=== PATIENT | male | born 1960 | race Caucasian/White ===

== ENCOUNTER 2018-07-31 07:53 | Outpatient (CLI) | payer OTHER ==
[2018-07-31 09:42] LABS: Mean Corpuscular HGB CONC 34.8 g/dL (32.0-36.0); Mean Corpuscular Hemoglobin 30.6 pg (27.0-31.0); Mean Platelet Volume 6.3 fL (7.4-10.4); Platelet Count 292 thou/uL (130-400); RBC Distribution Width 12.3 % (11.5-14.5); White Blood Cell (WBC) Count 6.9 thou/uL (4.8-10.8)
[2018-07-31 09:43] LABS: PTT 29.1 SEC (22.9-36.1); Prothrombin Time 13.4 SEC (12.0-14.7)
[2018-07-31 09:49] LABS: Anion Gap 10 mmol/L (10-20); BUN (Urea Nitrogen) 14 mg/dL (8.4-25.7); Calc. Creatinine Clearance 0 mL/min (70-130); Calcium 9.4 mg/dL (7.8-10.44); Carbon Dioxide 26 mmol/L (22-29); Chloride 107 mmol/L (98-107); Estimated GFR-MDRD 77; Glucose 111 mg/dL (70-105); Potassium 4.4 mmol/L (3.5-5.1); Sodium 139 mmol/L (136-145)
[2018-07-31 11:35] LABS: Bilirubin Negative (Negative); Blood, Urine Negative (Negative); Clarity CLEAR (Clear); Glucose, Urine (Dipstick) Negative (Negative); Leukocyte Negative (Negative); Nitrite Negative (Negative); Protein, Urine (Dipstick) Negative (Neg-Trace)
[2018-07-31 11:38] LABS: Bacteria/HPF None Seen HPF (None Seen); Hyaline Casts/LPF 0-3 HYALINE CAST LPF (0-3 Hyaline); Squamous Epithelial None Seen HPF (0-3); WBC/HPF 0-3 HPF (0-3)
--- NOTE | 2018-07-31 12:19 | EKG ---
Test Reason : Blood Pressure : / mmHG Vent. Rate : 071 BPM Atrial Rate : 071 BPM P-R Int : 174 ms QRS Dur : 108 ms QT Int : 384 ms P-R-T Axes : 013 -67 011 degrees QTc Int : 417 ms Normal sinus rhythm Left anterior fascicular block Anterior infarct , age undetermined cannot be excluded Abnormal ECG Confirmed by FER POZO ([id number]) on 07/31/2018 12:19:38 PM Referred By: YESENIA SAMUEL Confirmed By:FER POZO
== END 2018-07-31 07:54 | disposition home or self-care (01) ==
LOC: LABBT 07:53
PROVIDERS: ATTEND Urology
DX: Z01.818 Encounter for other preprocedural examination (principal); N43.0 Encysted hydrocele
CPT/HCPCS: 80048; 81001; 85027; 85610; 85730; 87086; 93005; 93010

== ENCOUNTER 2018-08-11 10:34 | Day surgery (SDC) | payer OTHER ==
[2018-07-31 08:27] VITALS: BMI 32.1
[~2018-08-11 10:34] MED LIST: CEFAZOLIN/Water 2 GM/20 ML SYRINGE ONE
[2018-08-11] MEDS ORDERED: Bacitracin Zinc Ointment 30 gm TUBE ONE (11:13)
[2018-08-11] MEDS ORDERED: Bupivacaine 0.25% HCL 30 ML VIAL ONE (11:13)
[2018-08-11] MEDS ORDERED: Fentanyl 100 MCG/2 ML VIAL ONE (12:15)
--- NOTE | 2018-08-11 16:54 | OP ---
DATE OF SURGERY: 08/11/2018 SERVICE: Urology. SURGEON: Migue Man M.D. PREOPERATIVE DIAGNOSIS: Right hydrocele. POSTOPERATIVE DIAGNOSIS: Right noncommunicating hydrocele. PROCEDURE PERFORMED: Right hydrocelectomy in the Jaboulay fashion. INDICATIONS FOR PROCEDURE: Mr. Martin is a 58-year-old white male with a large right hydrocele. It is becoming uncomfortable and getting in the way of his activities. He elected to have the hydrocele r emoved with all risks and benefits discussed and he has agreed to proceed forward. DESCRIPTION OF PROCEDURE: After identification of armband and verification of consent, the patient w as brought back to the operating room and he underwent general anesthesia with an LMA. He was left i n the supine position and prepped and draped in usual sterile fashion. After appropriate timeout, a horizontal incision was made along one of the scrotal creases on the rig ht hemiscrotum in a horizontal fashion. Dissection was carried down through the dartos and external and internal spermatic fascia using Bovie electrocautery until the tunica vaginalis was identified. The hydrocele was dissected free from the underlying tissues with blunt dissection and some Bovie tanya ctrocautery. Once enough had been dissected free, the hydrocele was delivered out through the scrota l incision to the outside. The surrounding tissues were swept back using a Ray-Himanshu until the spermat ic cord was visualized. An incision was made on the anterior surface of the hydrocele sac with a 15 blade, approximately 800 and 900 mL of straw-colored fluid were evacuated. The hydrocele sac was the n opened completely up to the apex near the spermatic cord and close to the epididymis on the inferio r pole. The testicle was visualized and appeared to be normal. The epididymis was somewhat splayed out, but otherwise intact and normal. The hydrocele sac was then excised on both sides and sent off for routine pathologic evaluation, taking care not to injure the epididymis or the vas deferens. Any loose vessels or bleeding areas were cauterized and sealed and then the remaining flaps of the tunic a vaginalis were everted and sewed on the posterior aspect of the testicle loosely to ensure that it was adequately everted, but not tight enough to form and closed space for hydrocele recurrence in the posterior aspect of the testicle. The testicle was thoroughly irrigated and all structures identifi ed to be found intact without any compromise in blood flow. A direct cord block was performed with 0 .25% Marcaine plain directly into the spermatic cord. The inside of the scrotal wall was searched fo r any bleeding areas and any minor bleeding was cauterized, there were no major bleeds identified. A small incision was made on the inferior aspect of the right hemiscrotum using the cutting current on the Bovie and a hemostat used to pass a quarter inch Carney drain tube for the drain stitch was tiago lied with a 3-0 nylon and a small thin anchoring stitch with a 4-0 chromic on the inside to prevent a ccidental removal with a very small piece of the internal spermatic fascia to anchor it. The testis was redelivered back into the scrotum and after been thoroughly irrigated with fluid evacuated, the d artos and spermatic fascias were closed using a 2-0 Vicryl in a running fashion. The skin closed wit h a 4-0 Monocryl with Marcaine used in the incision line as well. Dermabond was applied and once dri ed, scrotal fluffs and a jockstrap applied. The patient was then awakened and taken to PACU for leticia very in stable condition. COMPLICATIONS: None. ESTIMATED BLOOD LOSS: 10 mL RETAINED TUBES AND DRAINS: A quarter inch Carney drain. SPECIMENS: Hydrocele sac. DISPOSITION: The patient will be discharged home and follow up with me in approximately 1 week for a drain removal.
== END 2018-08-11 17:30 | disposition home or self-care (01) ==
LOC: SDC 10:34
PROVIDERS: ATTEND Urology
PROC: 0VB60ZZ Excision of Right Tunica Vaginalis, Open Approach (ICD-10-PCS; principal; 2018-08-11)
DX: N43.0 Encysted hydrocele (principal); I10 Essential (primary) hypertension; E78.5 Hyperlipidemia, unspecified; J30.9 Allergic rhinitis, unspecified; E66.9 Obesity, unspecified; Z68.32 Body mass index [BMI] 32.0-32.9, adult; Z79.899 Other long term (current) drug therapy
CPT/HCPCS: 88302; J3010; S0020

== ENCOUNTER 2021-07-08 05:22 | Inpatient (IN) | payer BC ==
[2021-07-08 05:48] LABS: Mean Corpuscular HGB CONC 32.2 g/dL (32.0-36.0); Mean Corpuscular Hemoglobin 28.7 pg (27.0-31.0); Mean Platelet Volume 6.5 fL (7.4-10.4); Platelet Count 482 thou/uL (130-400); RBC Distribution Width 12.9 % (11.5-14.5); Red Blood Cell (RBC) Count 5.25 mill/uL (4.70-6.10); White Blood Cell (WBC) Count 16.5 thou/uL (4.8-10.8)
[2021-07-08 06:06] LABS: Lymphocytes 11 % (21-51); MDiff Complete? YES; Monocytes 10 % (0-10); Myelocyte 1 % (0-0); Neutrophil 78 % (42-75); Platelet Morphology Comment Appears Increased
[2021-07-08 06:09] LABS: ALT (SGPT) 306 U/L (8-55); AST (SGOT) 169 U/L (5-34); Albumin 3.5 g/dL (3.4-4.8); Alkaline Phosphatase 121 U/L (40-110); Anion Gap 15 mmol/L (10-20); BUN (Urea Nitrogen) 19 mg/dL (8.4-25.7); Bilirubin, Total 1.2 mg/dL (0.2-1.2); Calc. Creatinine Clearance 0 mL/min (70-130); Calcium 8.8 mg/dL (7.8-10.44); Carbon Dioxide 27 mmol/L (23-31); Chloride 101 mmol/L (98-107); Globulin 4.4 g/dL (2.4-3.5); Glucose 150 mg/dL (80-115); Potassium 4.1 mmol/L (3.5-5.1); Protein, Total 7.9 g/dL (5.8-8.1); Sodium 139 mmol/L (136-145)
[2021-07-08] MEDS ORDERED: Cefepime 2 GM VIAL ONE (06:30)
[2021-07-08] MEDS ORDERED: Vancomycin 1 GM/200 ML BAG ONE (06:46)
[2021-07-08] MEDS ORDERED: Dexamethasone 10 MG/ML VIAL ONE ×2 (06:46→06:48)
[2021-07-08] MEDS ORDERED: Enoxaparin Sodium 100 MG/ML SYRINGE ONE (07:33)
[2021-07-08] MEDS ORDERED: Ondansetron PF 4 MG/2 ML Vial IVP PRN (08:03)
[2021-07-08] MEDS ORDERED: Acetaminophen 650 MG Suppository PR PRN (08:03)
[2021-07-08] MEDS ORDERED: Ondansetron ODT 4 MG TAB PO PRN (08:03)
[2021-07-08] MEDS ORDERED: Melatonin 3 MG TAB PO PRN (08:05)
[2021-07-08] MEDS ORDERED: Vancomycin 1 GM in Premix Bag 1 BAG IVPB SCH (08:15)
[2021-07-08 08:42] LABS: Lactic Acid 0.9 mmol/L (0.5-2.2)
[2021-07-08] MEDS ORDERED: Dexamethasone 10 MG/ML VIAL SLOW IVP SCH (09:00)
[2021-07-08 09:06] LABS: HBCM Index 0.07 S/CO (0-0.79); HBSAg Index 0.16 S/CO (0-0.99); Hep A IgM AB Non-Reactive (NonReactive); Hep A IgM S/CO 0.12 S/CO (0-0.79); Hep B Surf Ag Non-Reactive S/CO (NonReactive); Hep C IgG Ab Non-Reactive (NonReactive); Hep C Index 0.07 S/CO (0-0.79); Hepatitis B Core IgM Abs Non-Reactive (NonReactive)
[2021-07-08 09:29] LABS: Ferritin 4007.58 ng/mL (22-322)
[2021-07-08] MEDS: Famotidine 20 MG TAB PO SCH ×2 (10:29→20:29)
[2021-07-08] MEDS: Ascorbic Acid 500 mg Chewable Tablet PO SCH (10:29)
[2021-07-08] MEDS: Zinc Sulfate 220 MG CAP PO SCH (10:30)
[2021-07-08] MEDS ORDERED: Iopamidol-370 76% 500 ML 1 ML ONE (10:42)
[2021-07-08 11:07] VITALS: BMI 30.2
[2021-07-08] MEDS ORDERED: Vancomycin HCl 1.5 GM in Sodium Chloride 0.9% 250 ML 300 ML IVPB SCH (12:00)
[2021-07-08] MEDS ORDERED: Albuterol 200 PUFF (6.7GM INHALER) INH PRN (17:53)
[2021-07-08] MEDS: CEFEPIME HCL IN DEXTROSE 5 % 1 GM in Premix Bag 1 BAG IVPB SCH (18:37)
[2021-07-08] MEDS: Albuterol 200 PUFF (6.7GM INHALER) INH SCH ×2 (18:38→23:45)
[2021-07-08] MEDS: Cholecalciferol 1,000 UNITS (25 MCG) TAB PO SCH (20:29)
[2021-07-08] MEDS: Dexamethasone 10 MG/ML VIAL SLOW IVP SCH (20:29)
[2021-07-08] MEDS: Enoxaparin Sodium 100 MG/ML SYRINGE SC SCH (20:30)
[2021-07-08] MEDS ORDERED: Enoxaparin Sodium 80 MG/0.8 ML SYRINGE SC SCH (21:00)
[2021-07-08] MEDS: Vancomycin 1.5 GRAM/300 ML BAG 1.5 GM in Premix Bag 1 BAG IVPB SCH (23:45)
[2021-07-09] MEDS: Albuterol 200 PUFF (6.7GM INHALER) INH SCH ×6 (02:35→23:05)
[2021-07-09] MEDS: CEFEPIME HCL IN DEXTROSE 5 % 1 GM in Premix Bag 1 BAG IVPB SCH (06:05)
[2021-07-09 06:13] LABS: Eosinophils 1 % (0-10); Hemoglobin 12.7 g/dL (14.0-18.0); Lymphocytes 3 % (21-51); MDiff Complete? YES; Mean Corpuscular HGB CONC 32.4 g/dL (32.0-36.0); Mean Corpuscular Volume 89.7 fL (78.0-98.0); Mean Platelet Volume 6.5 fL (7.4-10.4); Monocytes 9 % (0-10); Neutrophil 87 % (42-75); Platelet Count 480 thou/uL (130-400); Platelet Morphology Comment Appears Increased; RBC Distribution Width 12.9 % (11.5-14.5); Red Blood Cell (RBC) Count 4.38 mill/uL (4.70-6.10); White Blood Cell (WBC) Count 17.5 thou/uL (4.8-10.8)
[2021-07-09 06:14] LABS: Phosphorus 3.1 mg/dL (2.3-4.7)
[2021-07-09 06:17] LABS: ALT (SGPT) 348 U/L (8-55); AST (SGOT) 205 U/L (5-34); Alkaline Phosphatase 106 U/L (40-110); Anion Gap 12 mmol/L (10-20); BUN (Urea Nitrogen) 21 mg/dL (8.4-25.7); Bilirubin, Total 0.7 mg/dL (0.2-1.2); Calc. Creatinine Clearance 126 mL/min (70-130); Carbon Dioxide 22 mmol/L (23-31); Chloride 108 mmol/L (98-107); Globulin 3.6 g/dL (2.4-3.5); Glucose 160 mg/dL (80-115); Protein, Total 6.6 g/dL (5.8-8.1); Sodium 138 mmol/L (136-145)
[2021-07-09 06:20] LABS: CRP (Inflammatory) 20.98 mg/dL (= or < 0.5); Magnesium 2.7 mg/dL (1.6-2.6)
[2021-07-09] MEDS ORDERED: Dexamethasone 4 mg/ml Vial SLOW IVP SCH (07:00)
[2021-07-09] MEDS: Dexamethasone 10 MG/ML VIAL SLOW IVP SCH ×2 (08:17→20:04)
[2021-07-09] MEDS: Famotidine 20 MG TAB PO SCH ×2 (08:17→20:04)
[2021-07-09] MEDS: Ascorbic Acid 500 mg Chewable Tablet PO SCH (08:17)
[2021-07-09] MEDS: Zinc Sulfate 220 MG CAP PO SCH (08:17)
[2021-07-09] MEDS: Enoxaparin Sodium 100 MG/ML SYRINGE SC SCH ×2 (08:18→20:05)
[2021-07-09] MEDS: Vancomycin 1.5 GRAM/300 ML BAG 1.5 GM in Premix Bag 1 BAG IVPB SCH (12:19)
[2021-07-09] MEDS: Guaifenesin DM 100-10/5 ML UDCUP PO PRN ×2 (12:27→20:04)
[2021-07-09] MEDS ORDERED: CEFEPIME HCL IN DEXTROSE 5 % 1 GM in Premix Bag 1 BAG IVPB SCH (19:15)
[2021-07-09] MEDS: Atorvastatin Calcium 20 MG TAB PO SCH (20:04)
[2021-07-09] MEDS: Cholecalciferol 1,000 UNITS (25 MCG) TAB PO SCH (20:04)
[2021-07-09] MEDS ORDERED: Vancomycin 1.5 GRAM/300 ML BAG 1.5 GM in Premix Bag 1 BAG IVPB SCH (23:59)
[2021-07-10 00:16] LABS: Vancomycin, Trough 9.9 ug/mL
[2021-07-10] MEDS: VANCOMYCIN 1.75 GM/350 ML BAG 1.75 GM in Premix Bag 1 BAG IVPB SCH ×2 (00:33→13:31)
[2021-07-10] MEDS: Albuterol 200 PUFF (6.7GM INHALER) INH SCH ×6 (03:06→22:46)
[2021-07-10] MEDS: CEFEPIME HCL IN DEXTROSE 5 % 1 GM in Premix Bag 1 BAG IVPB SCH ×2 (06:12→18:18)
[2021-07-10 07:09] LABS: ALT (SGPT) 406 U/L (8-55); AST (SGOT) 172 U/L (5-34); Albumin 2.7 g/dL (3.4-4.8); Alkaline Phosphatase 89 U/L (40-110); Anion Gap 10 mmol/L (10-20); BUN (Urea Nitrogen) 20 mg/dL (8.4-25.7); Bilirubin, Total 0.4 mg/dL (0.2-1.2); Calc. Creatinine Clearance 128 mL/min (70-130); Calcium 7.8 mg/dL (7.8-10.44); Carbon Dioxide 26 mmol/L (23-31); Chloride 108 mmol/L (98-107); Globulin 3.3 g/dL (2.4-3.5); Glucose 147 mg/dL (80-115); Potassium 4.5 mmol/L (3.5-5.1); Sodium 139 mmol/L (136-145)
[2021-07-10 07:13] LABS: Hemoglobin 11.8 g/dL (14.0-18.0); Mean Corpuscular HGB CONC 32.9 g/dL (32.0-36.0); Mean Corpuscular Hemoglobin 29.9 pg (27.0-31.0); Mean Platelet Volume 6.6 fL (7.4-10.4); Platelet Count 525 thou/uL (130-400); Red Blood Cell (RBC) Count 3.94 mill/uL (4.70-6.10); White Blood Cell (WBC) Count 19.1 thou/uL (4.8-10.8)
[2021-07-10 08:08] LABS: Band 5 % (5-11); Lymphocytes 7 % (21-51); MDiff Complete? YES; Monocytes 1 % (0-10); Neutrophil 87 % (42-75); Platelet Morphology Comment Appears Increased; Polychromasia SLIGHT = 2-3 cells (100X) (0-2/hpf)
[2021-07-10] MEDS: Famotidine 20 MG TAB PO SCH ×2 (08:28→20:27)
[2021-07-10] MEDS: Enoxaparin Sodium 100 MG/ML SYRINGE SC SCH ×2 (08:28→20:26)
[2021-07-10] MEDS: Guaifenesin DM 100-10/5 ML UDCUP PO PRN (08:28)
[2021-07-10] MEDS: Zinc Sulfate 220 MG CAP PO SCH (08:28)
[2021-07-10] MEDS: Ascorbic Acid 500 mg Chewable Tablet PO SCH (08:29)
[2021-07-10] MEDS: Dexamethasone 10 MG/ML VIAL SLOW IVP SCH ×2 (08:29→20:27)
[2021-07-10] MEDS: Acetaminophen 325 MG TAB PO PRN (13:45)
[2021-07-10] MEDS: Cholecalciferol 1,000 UNITS (25 MCG) TAB PO SCH (20:27)
[2021-07-10] MEDS: Atorvastatin Calcium 20 MG TAB PO SCH (20:27)
[2021-07-11] MEDS: Albuterol 200 PUFF (6.7GM INHALER) INH SCH ×6 (01:46→22:30)
[2021-07-11] MEDS: VANCOMYCIN 1.75 GM/350 ML BAG 1.75 GM in Premix Bag 1 BAG IVPB SCH ×2 (01:46→13:41)
[2021-07-11] MEDS: CEFEPIME HCL IN DEXTROSE 5 % 1 GM in Premix Bag 1 BAG IVPB SCH ×2 (05:59→18:27)
[2021-07-11 06:36] LABS: Hemoglobin 12.8 g/dL (14.0-18.0); Mean Corpuscular HGB CONC 32.2 g/dL (32.0-36.0); Mean Corpuscular Hemoglobin 29.1 pg (27.0-31.0); Mean Corpuscular Volume 90.5 fL (78.0-98.0); Mean Platelet Volume 6.3 fL (7.4-10.4); Platelet Count 602 thou/uL (130-400); RBC Distribution Width 13.1 % (11.5-14.5); Red Blood Cell (RBC) Count 4.41 mill/uL (4.70-6.10); White Blood Cell (WBC) Count 18.3 thou/uL (4.8-10.8)
[2021-07-11 07:24] LABS: Band 2 % (5-11); Lymphocytes 6 % (21-51); MDiff Complete? YES; Metamyelocyte 2 % (0-0); Monocytes 6 % (0-10); Neutrophil 84 % (42-75); Platelet Morphology Comment Appears Increased; RBC Morphology Normal
[2021-07-11 07:56] LABS: ALT (SGPT) 395 U/L (8-55); AST (SGOT) 94 U/L (5-34); Alkaline Phosphatase 95 U/L (40-110); Anion Gap 11 mmol/L (10-20); BUN (Urea Nitrogen) 20 mg/dL (8.4-25.7); Bilirubin, Total 0.5 mg/dL (0.2-1.2); Calc. Creatinine Clearance 128 mL/min (70-130); Calcium 8.1 mg/dL (7.8-10.44); Carbon Dioxide 26 mmol/L (23-31); Chloride 107 mmol/L (98-107); Globulin 3.2 g/dL (2.4-3.5); Glucose 130 mg/dL (80-115); Potassium 4.7 mmol/L (3.5-5.1); Protein, Total 6.2 g/dL (5.8-8.1); Sodium 139 mmol/L (136-145)
[2021-07-11] MEDS: Guaifenesin DM 100-10/5 ML UDCUP PO PRN (08:55)
[2021-07-11] MEDS: Ascorbic Acid 500 mg Chewable Tablet PO SCH (08:55)
[2021-07-11] MEDS: Enoxaparin Sodium 100 MG/ML SYRINGE SC SCH ×2 (08:55→20:53)
[2021-07-11] MEDS: Famotidine 20 MG TAB PO SCH ×2 (08:56→20:54)
[2021-07-11] MEDS: Zinc Sulfate 220 MG CAP PO SCH (08:56)
[2021-07-11] MEDS: Dexamethasone 10 MG/ML VIAL SLOW IVP SCH ×2 (08:56→20:53)
[2021-07-11 12:30] LABS: Vancomycin, Trough 14.6 ug/mL
[2021-07-11] MEDS: Acetaminophen 325 MG TAB PO PRN (15:20)
[2021-07-11] MEDS: Atorvastatin Calcium 20 MG TAB PO SCH (20:53)
[2021-07-11] MEDS: Cholecalciferol 1,000 UNITS (25 MCG) TAB PO SCH (20:54)
[2021-07-11] MEDS: Lisinopril 10 MG TAB PO SCH (20:54)
[2021-07-12] MEDS: Albuterol 200 PUFF (6.7GM INHALER) INH SCH ×6 (01:58→21:02)
[2021-07-12] MEDS: VANCOMYCIN 1.75 GM/350 ML BAG 1.75 GM in Premix Bag 1 BAG IVPB SCH ×2 (01:58→13:18)
[2021-07-12] MEDS: CEFEPIME HCL IN DEXTROSE 5 % 1 GM in Premix Bag 1 BAG IVPB SCH ×2 (06:07→18:29)
[2021-07-12 06:47] LABS: Hemoglobin 12.3 g/dL (14.0-18.0); Mean Corpuscular HGB CONC 32.2 g/dL (32.0-36.0); Mean Corpuscular Hemoglobin 28.8 pg (27.0-31.0); Mean Corpuscular Volume 89.3 fL (78.0-98.0); Mean Platelet Volume 6.5 fL (7.4-10.4); Platelet Count 569 thou/uL (130-400); Red Blood Cell (RBC) Count 4.28 mill/uL (4.70-6.10); White Blood Cell (WBC) Count 16.2 thou/uL (4.8-10.8)
[2021-07-12 07:07] LABS: ALT (SGPT) 338 U/L (8-55); AST (SGOT) 65 U/L (5-34); Albumin 2.8 g/dL (3.4-4.8); Alkaline Phosphatase 93 U/L (40-110); Anion Gap 13 mmol/L (10-20); BUN (Urea Nitrogen) 16 mg/dL (8.4-25.7); Bilirubin, Total 0.5 mg/dL (0.2-1.2); Calc. Creatinine Clearance 140 mL/min (70-130); Calcium 7.9 mg/dL (7.8-10.44); Carbon Dioxide 22 mmol/L (23-31); Chloride 108 mmol/L (98-107); Glucose 131 mg/dL (80-115); Potassium 4.6 mmol/L (3.5-5.1); Protein, Total 5.8 g/dL (5.8-8.1); Sodium 138 mmol/L (136-145)
[2021-07-12 07:37] LABS: Lymphocytes 8 % (21-51); MDiff Complete? YES; Monocytes 5 % (0-10); Neutrophil 85 % (42-75); Platelet Morphology Comment Appears Increased; Polychromasia SLIGHT = 2-3 cells (100X) (0-2/hpf); Reactive Lymphocytes 2 % (0-10)
[2021-07-12] MEDS: Guaifenesin DM 100-10/5 ML UDCUP PO PRN (08:37)
[2021-07-12] MEDS: Ascorbic Acid 500 mg Chewable Tablet PO SCH (08:37)
[2021-07-12] MEDS: Acetaminophen 325 MG TAB PO PRN (08:37)
[2021-07-12] MEDS: Zinc Sulfate 220 MG CAP PO SCH (08:38)
[2021-07-12] MEDS: Famotidine 20 MG TAB PO SCH ×2 (08:38→21:01)
[2021-07-12] MEDS: Enoxaparin Sodium 100 MG/ML SYRINGE SC SCH (08:38)
[2021-07-12] MEDS: Dexamethasone 10 MG/ML VIAL SLOW IVP SCH ×2 (08:38→21:01)
[2021-07-12] MEDS: Atorvastatin Calcium 20 MG TAB PO SCH (21:01)
[2021-07-12] MEDS: Cholecalciferol 1,000 UNITS (25 MCG) TAB PO SCH (21:01)
[2021-07-12] MEDS: Lisinopril 10 MG TAB PO SCH (21:01)
[2021-07-12] MEDS: Apixaban 5 MG TAB PO SCH (21:01)
[2021-07-13 00:42] LABS: Vancomycin, Trough 13.5 ug/mL
[2021-07-13] MEDS: Albuterol 200 PUFF (6.7GM INHALER) INH SCH ×6 (04:10→21:08)
[2021-07-13] MEDS: CEFEPIME HCL IN DEXTROSE 5 % 1 GM in Premix Bag 1 BAG IVPB SCH (06:01)
[2021-07-13 06:55] LABS: ALT (SGPT) 347 U/L (8-55); AST (SGOT) 67 U/L (5-34); Albumin 2.7 g/dL (3.4-4.8); Alkaline Phosphatase 82 U/L (40-110); Anion Gap 9 mmol/L (10-20); BUN (Urea Nitrogen) 20 mg/dL (8.4-25.7); Bilirubin, Total 0.5 mg/dL (0.2-1.2); Calc. Creatinine Clearance 138 mL/min (70-130); Calcium 8.1 mg/dL (7.8-10.44); Carbon Dioxide 25 mmol/L (23-31); Chloride 109 mmol/L (98-107); Glucose 94 mg/dL (80-115); Potassium 4.7 mmol/L (3.5-5.1); Protein, Total 5.7 g/dL (5.8-8.1); Sodium 138 mmol/L (136-145)
[2021-07-13] MEDS: Zinc Sulfate 220 MG CAP PO SCH (07:56)
[2021-07-13] MEDS: Dexamethasone 10 MG/ML VIAL SLOW IVP SCH ×2 (07:56→21:08)
[2021-07-13] MEDS: Famotidine 20 MG TAB PO SCH ×2 (07:57→21:08)
[2021-07-13] MEDS: Apixaban 5 MG TAB PO SCH ×2 (07:57→21:08)
[2021-07-13] MEDS: Ascorbic Acid 500 mg Chewable Tablet PO SCH (07:57)
[2021-07-13] MEDS: Guaifenesin DM 100-10/5 ML UDCUP PO PRN (11:56)
[2021-07-13] MEDS: Acetaminophen 325 MG TAB PO PRN (11:57)
[2021-07-13] MEDS: Atorvastatin Calcium 20 MG TAB PO SCH (21:07)
[2021-07-13] MEDS: Cholecalciferol 1,000 UNITS (25 MCG) TAB PO SCH (21:08)
[2021-07-13] MEDS: Lisinopril 10 MG TAB PO SCH (21:08)
[2021-07-13] MEDS: GUAIFENESIN DM SF 5 ML UDCUP PO PRN (21:39)
[2021-07-14] MEDS: Albuterol 200 PUFF (6.7GM INHALER) INH SCH ×3 (04:55→10:11)
[2021-07-14] MEDS: Apixaban 5 MG TAB PO SCH (09:26)
[2021-07-14] MEDS: Ascorbic Acid 500 mg Chewable Tablet PO SCH (09:26)
[2021-07-14] MEDS: Zinc Sulfate 220 MG CAP PO SCH (09:26)
[2021-07-14] MEDS: Famotidine 20 MG TAB PO SCH (09:27)
[2021-07-14] MEDS: Dexamethasone 10 MG/ML VIAL SLOW IVP SCH (09:27)
[2021-07-14] MEDS: GUAIFENESIN DM SF 5 ML UDCUP PO PRN (11:07)
[2021-07-14 11:51] VITALS: BP 135/95; TEMP 98.3
== END 2021-07-14 11:43 | disposition home or self-care (01) | DRG 871 ==
LOC: ERS 05:22 → ERHOLD 06:51 → T4-A 09:39
PROVIDERS: ADMIT Internal Medicine; ATTEND Internal Medicine
PROC: 8E0ZXY6 Isolation (ICD-10-PCS; principal; 2021-07-08)
DX: A41.89 Other specified sepsis (principal); U07.1 COVID-19; J12.82 Pneumonia due to coronavirus disease 2019; J96.01 Acute respiratory failure with hypoxia; I26.99 Other pulmonary embolism without acute cor pulmonale; I10 Essential (primary) hypertension; R74.01 Elevation of levels of liver transaminase levels; E78.5 Hyperlipidemia, unspecified; E78.00 Pure hypercholesterolemia, unspecified; Z79.899 Other long term (current) drug therapy; Z98.890 Other specified postprocedural states
CPT/HCPCS: 36415; 36416; 71045; 71275; 80053; 80074; 80202; 82728; 83605; 83735; 83880; 84100; 84484; 85025; 85379; 86140; 87040; 93005; 94760; 96365; 96372; 96375; J0692; J1100; J1650; J3370; J7050; Q9967

== ENCOUNTER 2021-09-03 13:31 | Outpatient (CLI) | payer BC | END 2021-09-03 13:32 | disposition home or self-care (01) | LOC: BICRAD 13:31 | PROVIDERS: ATTEND Family Medicine | DX: R06.09 Other forms of dyspnea (principal) | CPT/HCPCS: 71046 ==